=== PATIENT | female | born 1945 | race Caucasian/White ===

== ENCOUNTER → 2016-07-16 | Outpatient (CLI) | payer OTHER | LOC: FIMAGING 13:32 | PROVIDERS: ATTEND Orthopaedic Surgery | DX: Z01.818 Encounter for other preprocedural examination (principal); M17.12 Unilateral primary osteoarthritis, left knee; M25.462 Effusion, left knee; M23.42 Loose body in knee, left knee; M71.22 Synovial cyst of popliteal space [Baker], left knee ==

== ENCOUNTER 2016-07-23 07:14 | Observation (INO) | payer OTHER ==
[~2016-07-23 07:14] MED LIST: ACETAMINOPHEN 325 MG TAB PO ONE; CHLORHEXIDINE GLUC HIBICLENS 118 ML BTL TP ONE; DEXAMETHASONE 4 MG/ML VIAL IVP ONE; FAMOTIDINE 20 MG TAB PO ONE; ROPI/epiNEPH/KETOROLAC JOINT COCKTAIL IU ONE; TRANEXAMIC ACID 3,000 MG in NS 50 ML IRR ONE
[2016-07-23] MEDS ORDERED: FAMOTIDINE 20 MG TAB ONE (07:21)
[2016-07-23] MEDS ORDERED: CEFAZOLIN 2 GM/DEXTROSE/100 ML BAG IV ONE (07:21)
[2016-07-23] MEDS ORDERED: DEXAMETHASONE 4 MG/ML VIAL ONE (07:21)
[2016-07-23] MEDS ORDERED: ACETAMINOPHEN 325 MG TAB ONE (07:21)
[2016-07-23] MEDS ORDERED: LIDOCAINE 1% 2 ML INJ ONE (07:27)
[2016-07-23] MEDS ORDERED: TRANEXAMIC ACID 3,000 MG/50 ML BAG IRR ONE (07:38)
[2016-07-23] MEDS ORDERED: SKIN ADHESIVE (DERMABOND) 1 EACH TP ONE (07:38)
[2016-07-23] MEDS ORDERED: VANCOMYCIN 1 GM VIAL IV ONE (07:38)
[2016-07-23] MEDS ORDERED: fentaNYL 100 MCG/2 ML INJ ONE (07:59)
[2016-07-23] MEDS ORDERED: PROPOFOL 200 MG/20 ML VIAL ONE (08:00)
[2016-07-23] MEDS ORDERED: VANCOMYCIN 1 GM/NS 250 ML BAG IV ONE (08:26)
[2016-07-23] MEDS ORDERED: MIDAZOLAM 2 MG/2 ML VIAL ONE (08:56)
[2016-07-23] MEDS ORDERED: ONDANSETRON 4 MG/2 ML VIAL ONE (09:27)
[2016-07-23] MEDS ORDERED: RANITIDINE 50 MG/2 ML VIAL ONE (09:27)
[2016-07-23] MEDS ORDERED: LACTULOSE 20 GM/30 ML UDCUP PO PRN (09:30)
[2016-07-23] MEDS ORDERED: POLYETHYLENE GLYCOL 3350 17 GM PKT PO PRN (09:30)
[2016-07-23] MEDS ORDERED: diphenhydrAMINE 25 MG CAP PO PRN (09:30)
[2016-07-23] MEDS ORDERED: CYCLOBENZAPRINE 10 MG TAB PO PRN (09:30)
[2016-07-23] MEDS ORDERED: METOCLOPRAMIDE 10 MG/2 ML VIAL IVP PRN (09:30)
[2016-07-23] MEDS ORDERED: ONDANSETRON 4 MG/2 ML VIAL IVP PRN (09:30)
[2016-07-23] MEDS ORDERED: ONDANSETRON DISINTEGRATING 4 MG TAB PO PRN (09:30)
[2016-07-23] MEDS ORDERED: ceFAZolin 2 GM/DEXTROSE 100 ML IV ONE (09:30)
[2016-07-23] MEDS ORDERED: LR 1,000 ML IV SCH (09:30)
[2016-07-23] MEDS ORDERED: TEMAZEPAM 15 MG CAP PO PRN (09:30)
[2016-07-23] MEDS ORDERED: MAGNESIUM HYDROXIDE 30 ML UDCUP PO PRN (09:30)
[2016-07-23] MEDS ORDERED: BISACODYL 10 MG SUPP PR PRN (09:30)
[2016-07-23] MEDS ORDERED: PROMETHAZINE HCL 25 MG SUPPR PR PRN (09:30)
[2016-07-23] MEDS ORDERED: DIPHENOXYLATE/ATROPINE LOMOTIL 1 TAB PO PRN (09:30)
[2016-07-23] MEDS ORDERED: PHARMACY PAIN CONSULT 1 EA MISC PRN (09:30)
[2016-07-23] MEDS ORDERED: ROPIVACAINE HCL 150 MG/30 ML INJ ONE (09:50)
--- NOTE | 2016-07-23 10:20 | POSTOPPROG ---
Post Op Note Date of Operation: 07/23/16 Surgeon: Jaylyn Berumen Patent Clerk: hunter berumen Anesthesiologist: dr. love Anesthesia: Spinal, Other (Specify) (adductor canal block) Pre-op Diagnosis: left kene OA Post-op Diagnosis: same Indication: left knee pain due to OA that failed conservative measures Procedure: L medial knee arthroplasty Findings: severe medial knee OA Inf/Abcess present in the surg proc area at time of surgery?: No EBL: 50-100
[2016-07-23] MEDS: ceFAZolin 2 GM/DEXTROSE 100 ML IV SCH ×2 (12:58→21:30)
[2016-07-23] MEDS: ACETAMINOPHEN 325 MG TAB PO SCH ×2 (12:59→18:23)
[2016-07-23 14:33] VITALS: RESP 16
[2016-07-23] MEDS: FAMOTIDINE 20 MG TAB PO SCH (19:56)
[2016-07-23] MEDS: ASPIRIN 325 MG TAB PO SCH (19:56)
[2016-07-23] MEDS: PANTOPRAZOLE SODIUM 40 MG TAB PO SCH (19:58)
[2016-07-23] MEDS: SENNOSIDES/DOCUSATE SODIUM TAB PO SCH (19:59)
[2016-07-23] MEDS ORDERED: NON-FORMULARY NEW DRUG (Omeprazole [Omeprazole] 40 MG) PO SCH (21:00)
[2016-07-23] MEDS ORDERED: ATORVASTATIN CALCIUM 40 MG TAB PO SCH (21:00)
[2016-07-23] MEDS ORDERED: METOPROLOL SUCCINATE XR 50 MG TAB PO SCH (21:00)
[2016-07-23] MEDS ORDERED: metFORMIN SR 500 MG TAB PO SCH (21:00)
[2016-07-23] MEDS ORDERED: NON-FORMULARY NEW DRUG (Metformin Hcl [Metformin Hcl Er] 500 MG) PO SCH (21:00)
[2016-07-23] MEDS ORDERED: OLANZapine 2.5 MG TAB PO SCH (21:00)
[2016-07-24] MEDS: ACETAMINOPHEN 325 MG TAB PO SCH ×3 (00:09→11:18)
[2016-07-24 05:07] LABS: HEMATOCRIT 32.2 % (38.0-47.0); HEMOGLOBIN 10.2 g/dL (12.6-16.3)
[2016-07-24] MEDS ORDERED: LEVOTHYROXINE 75 MCG TAB PO SCH (06:00)
[2016-07-24] MEDS: oxyCODONE IR 5 MG TAB PO PRN ×2 (07:03→11:19)
[2016-07-24 07:47] VITALS: BP 138/91; PULSE 72; TEMP 97.9; O2SAT 91
[2016-07-24] MEDS ORDERED: amLODIPine BESYLATE 5 MG TAB PO SCH (09:00)
[2016-07-24] MEDS ORDERED: LOSARTAN/HCTZ 50/12.5 1 TAB PO SCH (09:00)
[2016-07-24] MEDS ORDERED: VENLAFAXINE XR 150 MG CAP PO SCH (09:00)
[2016-07-24] MEDS ORDERED: FERROUS SULFATE 325 MG TAB PO SCH (09:00)
[2016-07-24] MEDS: ASPIRIN 325 MG TAB PO SCH (09:21)
[2016-07-24] MEDS: FAMOTIDINE 20 MG TAB PO SCH (09:23)
[2016-07-24] MEDS: PANTOPRAZOLE SODIUM 40 MG TAB PO SCH (09:24)
[2016-07-24] MEDS: SENNOSIDES/DOCUSATE SODIUM TAB PO SCH (09:25)
--- NOTE | 2016-07-24 09:41 | SOAPPROG ---
SOAP Progress Note Assessment/Plan: Assessment: Chela is doing well POD 1 s/p L med MPL pain management: pain is well controlled on oral pain meds VTE ppx: recommend ASA 325mg daily for 3 weeks, continue KILLIAN estefaniae Anemia: level expected initially postop, asymptomatic, continue to monitor D/c planning: D/c to home pending release from PT Plan: 07/24/16 09:40 Subjective: Chela is doing well today, denies SOB. chest pain and N/V. Objective: Vital Signs Temp Pulse Resp BP Pulse Ox 36.6 C 72 16 138/91 H 91 L 07/24/16 07:46 07/24/16 07:46 07/24/16 07:46 07/24/16 09:23 07/24/16 07:46 Laboratory Results 07/24/16 04:43 07/23/16 07/24/16 07/25/16 05:59 05:59 05:59 Intake Total 3250 250 Output Total 1950 1100 Balance 1300 -850 LLE: incision dressing is clean and dry, NVI, +pf/df ICD10 Worksheet Patient Problems: Problems Problem Status Onset Primary localized osteoarthritis of left knee Acute
--- NOTE | 2016-07-24 10:04 | GDS ---
[f rep st] DISCHARGE SUMMARY ADMISSION DIAGNOSIS: Left knee osteoarthritis. DISCHARGE DIAGNOSIS: Left knee osteoarthritis. PROCEDURE: Left partial knee arthroplasty, robot assisted medial compartment. VTE PROPHYLAXIS: Aspirin recommended 3 weeks daily. BRIEF DESCRIPTION OF HOSPITAL STAY: Patient was admitted for an elective joint arthroplasty. The p atient tolerated the procedure well and has passed physical therapy. The patient was given appropri ate antibiotic prophylaxis and venous thromboembolism prophylaxis. The patient's pain was well cont rolled on oral pain medication, patient was holding down food, and had urinated. Decision was made to discharge the patient. The patient was given post-operative prescriptions pre-operatively. PLAN: Please follow up as scheduled at [facility] on August 12 at 10:45 a.m. /[id number]/MODL
--- NOTE | 2016-07-24 11:35 | GOP ---
[f rep st] OPERATIVE REPORT DATE OF OPERATION: 07/23/2016 SURGEON: Delfino Stack MD QUALITY REVIEW TRAINER: ARIK Talley. ANESTHESIA: Spinal. PREOPERATIVE DIAGNOSIS: Left knee osteoarthritis. POSTOPERATIVE DIAGNOSIS: Left knee osteoarthritis. PROCEDURE PERFORMED: Left medial compartment partial knee replacement using computer navigation, robotic assist. FINDINGS/PATHOLOGY: Severe medial compartment osteoarthritis. ESTIMATED BLOOD LOSS: 30 cc. INDICATIONS: This is a 71-year-old female with progressive pain of the left knee unresponsive to conservative care. Risks and benefits of surgical intervention were explained in detail. DESCRIPTION OF PROCEDURE: The patient was brought to the operating room and placed on the table in supine position. Spinal anesthesia was induced without difficulty. A pneumatic tourniquet was applied about the left proximal thigh and the leg was prepped and draped in sterile fashion. Attention was turned first to the distal aspect of the left femur. At 3 cm proximal to the lateral rise of the femur, 2 percutaneous half pins were placed for fixation of the femoral array. In a similar fashion, 2 pins were placed anterolateral on the tibia for fixation of the tibial array. External land marking and registration of the hip center was performed without difficulty. After exsanguination by elevation, the tourniquet was inflated to 275 mmHg. Incision was made from the tibial tuberosity to the superior pole of the patella. Dissection was carried out through the subcutaneous tissue to the deep fascia using Bovie electrocautery for hemostasis. Medial parapatellar arthrotomy was carried out to the superior pole of the patella. The medial collateral ligament was elevated and the infrapatellar fat pad was resected. Internal femoral and tibial registration was carried out without difficulty and the femoral and tibial checkpoints were placed and verified for accuracy. Attention was turned to the femur. The foot print for the size 3 femoral component was cut with the 6 mm bur using the Pinchd robotic system and verified for accuracy against the CT based plan. The hole was cut for the femoral post. In a similar fashion, the 6 mm bur was used to cut the foot print for the size 3 tibial component using the SATYA system and verified for accuracy against the CT based plan. Attention was turned to the posterior aspect of the knee and remnants of the medial meniscus were excised. The posterior capsule was injected with ropivacaine, epinephrine and Toradol. Trial reduction was carried out and there was excellent range of motion, alignment and stability using the size 3 femoral component and the size 3 tibial component, 3 x 8 mm polyethylene. All trials were then removed. The joint was thoroughly irrigated and carefully dried. One package of cement and 1 gram of vancomycin were mixed in the vacuum mixer and placed on the fixation surfaces of all components. The components were implanted and all excess cement was thoroughly removed. Implant placement was verified against the CT view plan and found to be excellent. The tourniquet was deflated and all bleeders were coagulated. The wound was thoroughly irrigated and closed using interrupted sutures of 2-0 Vicryl for the joint capsule. The subcu was closed with 3-0 Vicryl and the skin with 4-0 Monocryl. Dermabond and Steri-Strips were applied, followed by a compressive dressing. The patient was then moved from the operating room to the recovery room in good condition, having tolerated the procedure well. CASE CLASSIFICATION: Clean. /[id number]/MODL MTDD
== END 2016-07-24 11:28 | disposition home or self-care (01) ==
LOC: F3N 07:14 → INTOOBSV 07:14 → F3N 12:14
PROVIDERS: ADMIT Orthopaedic Surgery; ATTEND Orthopaedic Surgery
PROC: 0SRD0JZ Replacement of Left Knee Joint with Synthetic Substitute, Open Approach (ICD-10-PCS; principal; 2016-07-23 09:15)
PROC: 8E0YXBZ Computer Assisted Procedure of Lower Extremity (ICD-10-PCS; principal; 2016-07-23 09:15)
DX: M17.12 Unilateral primary osteoarthritis, left knee (principal); E11.59 Type 2 diabetes mellitus with other circulatory complications; E03.9 Hypothyroidism, unspecified; D50.0 Iron deficiency anemia secondary to blood loss (chronic); I25.10 Atherosclerotic heart disease of native coronary artery without angina pectoris; I10 Essential (primary) hypertension; F32.9 Major depressive disorder, single episode, unspecified; E78.5 Hyperlipidemia, unspecified; K21.9 Gastro-esophageal reflux disease without esophagitis; G47.33 Obstructive sleep apnea (adult) (pediatric); Z88.0 Allergy status to penicillin
CPT/HCPCS: 20985; 27446; 73560; 97116; 97161; 97165; C1713; C1776; G0378; G8978; G8979; G8980; G8987; G8988; G8989; J0171; J0690; J1100; J1885; J2250; J2405; J2704; J2780; J2795; J3010; J3370